=== PATIENT | male | born 1935 | race Caucasian/White ===

== ENCOUNTER 2022-04-17 13:21 | Outpatient (CLI) | payer OTHER, SELFPAY | END 2022-04-17 13:22 | disposition home or self-care (01) | LOC: WOUND 13:25 | PROVIDERS: Visit Provider Nurse Practitioner Family | DX: L89.152 Pressure ulcer of sacral region, stage 2 (principal); R26.89 Other abnormalities of gait and mobility | CPT/HCPCS: 99213 ==

== ENCOUNTER 2022-05-02 11:08 | Outpatient (CLI) | payer OTHER, SELFPAY | END 2022-05-02 11:09 | disposition home or self-care (01) | LOC: WOUND 11:08 | PROVIDERS: Visit Provider Physician Assistant Surgical | DX: L89.152 Pressure ulcer of sacral region, stage 2 (principal) | CPT/HCPCS: 99213 ==

== ENCOUNTER 2022-05-24 10:45 | Observation (INO) | payer OTHER, SELFPAY ==
[2022-05-24] VITALS (17 sets, daily range): BP systolic 134–176; BP diastolic 65–93; PULSE 87–108; RESP 12–20; TEMP 35.9–36.5; O2SAT 93–100; BMI 26.2; BMI 24.6
--- NOTE | 2022-05-24 11:10 | ED.ABDPAIN ---
HPI - Abdominal Pain General Time Seen by Provider: 11:10 Date Seen: 05/24/22 Chief Complaint: Abdominal Pain Stated Complaint: Stomach issues Time Seen by Provider: 05/24/22 11:00 Source: patient, RN notes reviewed and old records reviewed Mode of arrival: ambulatory Limitations: no limitations History of Present Illness HPI narrative: Patient is an 87-year-old male sent in from [facility] where he was evaluated by the nurse practitioner. He has been sick since May 16. The thought was that maybe he had gastroenteritis as it had been going around the facility. They did do an x-ray yesterday with the report showing nondiagnostic bowel gas pattern. Consider follow-up in the next few days if symptoms persist or worsen. They did note that there was a large gas bubble in the rectum. The colon was not constipated. They could see if you ticks in the descending and sigmoid colon. There were metal clips in the right upper quadrant presumably after cholecystectomy. There was attends device. No free air. They did note that there was a small left pleural effusion and some infiltrate in the left lower lobe. Note this was a dedicated abdomen one view. Previous cholecystectomy. Patient is a full code on his POLST. He is here with his son-in-law. With this illness, he has had nausea vomiting and diarrhea. Diarrhea sounds like it is subsided. He still did vomit yesterday but has not today. He admits he has not had good oral intake. No fevers at this time. He is requesting to drank but I have asked him to wait, will start IV fluids. He is having right-sided abdominal pain at this time. No reported respiratory symptoms. MD elicited complaint: abdominal pain Onset (ago): day(s) Location: RUQ and RLQ Severity: moderate Related Data Home Medications Medication Instructions Recorded Confirmed Lactobacillus acidophilus 1 cap PO .qod 05/24/22 05/24/22 allopurinol 100 mg tablet 200 mg PO DAILY 05/24/22 05/24/22 aspirin 81 mg capsule 81 mg PO DAILY 05/24/22 05/24/22 buprenorphine 2 mg-naloxone 0.5 mg 0.25 film sublingual Q24H 05/24/22 05/24/22 sublingual film cholecalciferol (vitamin D3) 25 25 mcg PO DAILY 05/24/22 05/24/22 mcg (1,000 unit) capsule (Vitamin D3) gabapentin 300 mg capsule 600 mg PO DAILY 05/24/22 05/24/22 isosorbide mononitrate 30 mg 30 mg PO DAILY 05/24/22 05/24/22 tablet,extended release 24 hr lidocaine 5 % topical patch 3 patch topical Q24H 05/24/22 05/24/22 lisinopril 20 1 tab PO DAILY 05/24/22 05/24/22 mg-hydrochlorothiazide 12.5 mg tablet metoprolol succinate 50 mg 75 mg PO DAILY 05/24/22 05/24/22 tablet,extended release 24 hr nystatin 100,000 unit/gram topical topical 05/24/22 ointment pregabalin 100 mg capsule 100 mg PO QPM 05/24/22 05/24/22 rivastigmine 9.5 mg/24 hour 1 patch topical DAILY 05/24/22 05/24/22 transdermal patch simvastatin 10 mg tablet 10 mg PO QPM 05/24/22 05/24/22 tamsulosin 0.4 mg capsule 0.4 mg PO DAILY 05/24/22 05/24/22 Allergies Allergy/AdvReac Type Severity Reaction Status Date / Time citalopram [From Celexa] Allergy Unknown Verified 05/24/22 11:11 clindamycin Allergy Unknown Verified 05/24/22 11:11 levofloxacin [From Levaquin] Allergy Unknown Verified 05/24/22 11:11 Penicillins Allergy Unknown Verified 05/24/22 11:11 Sulfa (Sulfonamide Allergy Unknown Verified 05/24/22 11:11 Antibiotics) diphenoxylate AdvReac Unknown Verified 05/24/22 11:11 duloxetine AdvReac Unknown Verified 05/24/22 11:11 Exam Const: Vital Signs, click to edit/add: Vital Signs - 24 hr 05/24/22 11:00 05/24/22 12:21 Temperature 96.6 F L Pulse Rate [Pulse Oximeter] 98 Respiratory Rate 14 Blood Pressure [Ri ght Upper Arm] 165/84 H Pulse Oximetry 95 93 Oxygen Delivery Me thod Room Air Documenting provider has reviewed patient's vital signs: yes Common normals: no apparent distress, average body habitus, oriented x3, no limitations and alert General appearance: cooperative, comfortable and frail appearing HENMT: Common normals: normocephalic, head/scalp atraumatic, hearing grossly normal bilaterally, external ears normal and external nose normal Head and scalp: normocephalic and atraumatic Nose: external nose normal External ear: external ears normal Mouth: moist mucous membranes abnormal (Dry mucosa without lesions) Eye: Common normals: PERRL, EOMs intact bilaterally, conjunctivae normal and no scleral icterus Conjunctiva: conjunctiva(e) normal Pupil: PERRL Neck & C-Spine: Common normals: full ROM, no lymphadenopathy and supple Chest: Common normals: inspection of chest normal and palpation of chest normal Other: Appears to have a well-healed sternotomy scar. Resp: Common normals: normal respiratory effort, no retractions, no use of accessory muscles and clear to auscultation bilaterally Auscultation: clear to auscultation bilaterally Cardio: Common normals: regular rate, regular rhythm, S1 normal heart sound and S2 normal heart sound Rate: regular rate Rhythm: regular rhythm Heart sounds: S1 normal, S2 normal and murmur ([place] best at apex) systolic GI: Common normals: Normal to inspection, nondistended, normoactive bowel sounds present, soft to palpation and no masses Palpation: soft Other: Has complete right-sided tenderness from right upper quadrant to right lower quadrant with guarding. Extremity: Common normals: no pedal edema Neuro: Common normals: oriented x3 Sensorium/orientation: alert Course Course Hospital Course: We have an 87-year-old male with right-sided abdominal pain and a history of being ill since the 16 of May. He also has possible pneumonia or lung findings on a dedicated abdominal x-ray. I do feel he needs abdominal imaging to rule out acute surgical abdomen as well as infectious etiology. This certainly could be appendicitis is it does not seem like he has had his appendix out. Gallbladder is gone. Need to visualize such things as the bowel, pancreas. I would also state that we need to look at his lung findings better. Thus will do chest abdomen pelvis. Will do a point of care creatinine to try to facilitate this workup quicker and make sure that he can tolerate IV contrast. Reevaluation(s) Reevaluation #1: Reviewed CT findings, nothing definitive for intra-abdominal pathology outside of thickened bladder wall. We will need to try to get a urinalysis. He has nearly completed his 1 L of fluid and does want to try eating and drinking. We will do an oral challenge with some fluids and crackers. He understands we need the urinalysis. Did review the elevated white count and the elevated C-reactive protein. Time: 13:58 Reevaluation #2: Reviewed with Arben his son-in-law that I had spoken with our surgeon Dr. Hernández. The concern is is that he is having localizing right-sided abdominal pain, elevated white count, elevated sed rate and elevated C-reactive protein. He has not had diarrhea for 2 days, last vomited yesterday but is overall weak as he has not been able to have adequate oral intake for fluids or solids. Our surgeon recommends admission for observation, serial exams. She will see him at some point today. I will talk to the hospitalist about admission. His neurostimulator site is not bothering him, has no other complaints. He is still having right-sided abdominal tenderness with some guarding features when I examine him. Time: 15:42 Consultations Consultation #1: Spoke with Dr. Hernández regarding this patient. We did review the CT, she agrees there is nothing definitive. She will see the patient, recommends hospitalization given his age, complaint of abdominal pain and his laboratory findings. Time: 15:30 Consultation #2: Reviewed with the hospitalist Dr. Haynes, she agrees for acceptance. Time: 15:48 Vital Signs Vital signs: Initial Vital Signs Temperature 96.6 F L 05/24/22 11:00 Temperature Source Temporal Artery Scan 05/24/22 11:00 Pulse Rate 98 05/24/22 11:00 Pulse Rhythm 05/24/22 11:00 Respiratory Rate 14 05/24/22 11:00 Blood Pressure 165/84 H 05/24/22 11:00 Blood Pressure Mean 111 05/24/22 11:00 Blood Pressure Position Supine 05/24/22 11:00 Pulse Oximetry 95 05/24/22 11:00 Oxygen Delivery Method 05/24/22 11:00 Vital Signs Temperature 96.6 F L 05/24/22 11:00 Pulse Rate 98 05/24/22 11:00 Respiratory Rate 14 05/24/22 11:00 Blood Pressure 165/84 H 05/24/22 11:00 Pulse Oximetry 95 05/24/22 11:00 Oxygen Delivery Method 05/24/22 11:00 Temperature 96.6 F L 05/24/22 11:00 Pulse Rate 98 05/24/22 11:00 Respiratory Rate 14 05/24/22 11:00 Blood Pressure 165/84 H 05/24/22 11:00 Pulse Oximetry 93 05/24/22 12:21 Oxygen Delivery Method 05/24/22 11:00 MDM - Abdominal Pain Differential Diagnosis Differential diagnosis: Likely abdominal pain, acute appendicitis, calculus of kidney, diverticulitis, gastroenteritis, pancreatitis and small bowel obstruction Medical Records Attestation: I reviewed the patient's medical records. Medical records narrative: The list of his diagnoses in his transfer paperwork reveals coronary artery disease, av malformation of digestive system vessel, enterocolitis due to C difficile, not recurrent, dyslipidemia, osteoarthritis of hip, iron deficiency anemia, chronic pain syndrome, knee pain, bilateral total knee replacements, lumbar degenerative disc disease, presumed prior CABG, dysphagia, hypertension, asthma history rotator cuff tear rupture of left shoulder, impingement syndrome of shoulder, adhesive capsulitis right shoulder lumbar spinal stenosis Alzheimer's disease, history of zoster bilateral inguinal hernias without obstruction, history of gout. Lab Data Attestation: I reviewed the patient's lab results. Labs: Lab Results 05/24/22 05/24/22 05/24/22 Range/Units 11:21 11:40 11:40 WBC 16.53 H (4.50-11.00) K/uL RBC 3.33 L (4.30-5.90) m/uL Hgb 11.4 L (13.5-17.5) gm/dL Hct 33.6 L (37.0-53.0) % MCV 101 H (80-100) fL MCH 34 (26-34) pg MCHC 34 (32-36) gm/dL RDW Coeff of [place] 14.4 (11.5-15.5) % Plt Count 205 (140-440) K/uL Neut % (Auto) 84.4 H (42.0-72.0) % Lymph % (Auto) 4.8 L (20-44) % [place] % (Auto) 10.5 (0.0-11.0) % Eos % (Auto) 0.0 (0.0-7.0) % Baso % (Auto) 0.1 (0.0-3.0) % Neut # (Auto) 14.00 H (1.7-7.0) K/uL Lymph # (Auto) 0.80 L (0.90-2.90) K/uL [place] # (Auto) 1.70 H (0.00-0.90) K/UL Eos # (Auto) 0.00 (0.00-0.50) K/uL Baso # (Auto) 0.00 (0.00-0.30) K/uL ESR 96 H (2-15) mm/hr Sodium (135-149) mmol/L Potassium (3.6-5.1) mmol/L Chloride (96-114) mmol/L Carbon Dioxide (20-32) mmol/L BUN (7-30) mg/dL Creatinine (0.5-1.5) mg/dL Estimated Creat Clear Estimated GFR ml/min Glucose (60-115) mg/dL Lactate (0.5-1.9) mmol/L Calcium (8.4-10.6) mg/dL Total Bilirubin (0.1-1.5) mg/dL AST (12-35) U/L ALT (4-50) U/L Alkaline Phosphatase (40-150) U/L C-Reactive Protein (0.5-1.0) mg/dL Total Protein (6.0-8.3) g/dL Albumin (3.3-5.0) g/dL Lipase (23-300) U/L Procalcitonin (<0.50) ng/mL Urine Color (Yellow) Urine Appearance (Clear) Urine pH (5.0-8.5) Ur Specific [place] (1.000-1.030) Urine Protein (Negative) Urine Glucose (UA) (Negative) Urine Ketones (Negative) Urine Blood (Negative) Urine Nitrite (Negative) Urine Bilirubin (Negative) Urine Urobilinogen (0.2-1.0) Ur Leukocyte Esterase (Negative) Urine RBC (0-2) Urine WBC (0-5) Ur Squamous Epith Cells (None-Few) Urine Bacteria (None) Fine Granular Casts (None) SARS-CoV-2 (PCR) Negative SARS-CoV-2 (Negative) POC Creatinine (0.6-1.3) mg/dl 05/24/22 05/24/22 05/24/22 Range/Units 11:40 11:40 11:40 WBC (4.50-11.00) K/uL RBC (4.30-5.90) m/uL Hgb (13.5-17.5) gm/dL Hct (37.0-53.0) % MCV (80-100) fL MCH (26-34) pg MCHC (32-36) gm/dL RDW Coeff of [place] (11.5-15.5) % Plt Count (140-440) K/uL Neut % (Auto) (42.0-72.0) % Lymph % (Auto) (20-44) % [place] % (Auto) (0.0-11.0) % Eos % (Auto) (0.0-7.0) % Baso % (Auto) (0.0-3.0) % Neut # (Auto) (1.7-7.0) K/uL Lymph # (Auto) (0.90-2.90) K/uL [place] # (Auto) (0.00-0.90) K/UL Eos # (Auto) (0.00-0.50) K/uL Baso # (Auto) (0.00-0.30) K/uL ESR (2-15) mm/hr Sodium 139 (135-149) mmol/L Potassium 3.8 (3.6-5.1) mmol/L Chloride 109 (96-114) mmol/L Carbon Dioxide 20 (20-32) mmol/L BUN 35 H (7-30) mg/dL Creatinine 1.1 (0.5-1.5) mg/dL Estimated Creat Clear 44.23 Estimated GFR 65 ml/min Glucose 165 H (60-115) mg/dL Lactate 1.7 (0.5-1.9) mmol/L Calcium 9.4 (8.4-10.6) mg/dL Total Bilirubin 1.9 H (0.1-1.5) mg/dL AST 25 (12-35) U/L ALT 24 (4-50) U/L Alkaline Phosphatase 96 (40-150) U/L C-Reactive Protein 15.7 H (0.5-1.0) mg/dL Total Protein 6.8 (6.0-8.3) g/dL Albumin 3.8 (3.3-5.0) g/dL Lipase 54 (23-300) U/L Procalcitonin 0.27 (<0.50) ng/mL Urine Color (Yellow) Urine Appearance (Clear) Urine pH (5.0-8.5) Ur Specific [place] (1.000-1.030) Urine Protein (Negative) Urine Glucose (UA) (Negative) Urine Ketones (Negative) Urine Blood (Negative) Urine Nitrite (Negative) Urine Bilirubin (Negative) Urine Urobilinogen (0.2-1.0) Ur Leukocyte Esterase (Negative) Urine RBC (0-2) Urine WBC (0-5) Ur Squamous Epith Cells (None-Few) Urine Bacteria (None) Fine Granular Casts (None) SARS-CoV-2 (PCR) (Negative) POC Creatinine 1.2 (0.6-1.3) mg/dl 05/24/22 Range/Units 14:29 WBC (4.50-11.00) K/uL RBC (4.30-5.90) m/uL Hgb (13.5-17.5) gm/dL Hct (37.0-53.0) % MCV (80-100) fL MCH (26-34) pg MCHC (32-36) gm/dL RDW Coeff of [place] (11.5-15.5) % Plt Count (140-440) K/uL Neut % (Auto) (42.0-72.0) % Lymph % (Auto) (20-44) % [place] % (Auto) (0.0-11.0) % Eos % (Auto) (0.0-7.0) % Baso % (Auto) (0.0-3.0) % Neut # (Auto) (1.7-7.0) K/uL Lymph # (Auto) (0.90-2.90) K/uL [place] # (Auto) (0.00-0.90) K/UL Eos # (Auto) (0.00-0.50) K/uL Baso # (Auto) (0.00-0.30) K/uL ESR (2-15) mm/hr Sodium (135-149) mmol/L Potassium (3.6-5.1) mmol/L Chloride (96-114) mmol/L Carbon Dioxide (20-32) mmol/L BUN (7-30) mg/dL Creatinine (0.5-1.5) mg/dL Estimated Creat Clear Estimated GFR ml/min Glucose (60-115) mg/dL Lactate (0.5-1.9) mmol/L Calcium (8.4-10.6) mg/dL Total Bilirubin (0.1-1.5) mg/dL AST (12-35) U/L ALT (4-50) U/L Alkaline Phosphatase (40-150) U/L C-Reactive Protein (0.5-1.0) mg/dL Total Protein (6.0-8.3) g/dL Albumin (3.3-5.0) g/dL Lipase (23-300) U/L Procalcitonin (<0.50) ng/mL Urine Color Yellow (Yellow) Urine Appearance Slightly Cloudy A (Clear) Urine pH 5.0 (5.0-8.5) Ur Specific [place] <= 1.005 (1.000-1.030) Urine Protein 1+ A (Negative) Urine Glucose (UA) Negative (Negative) Urine Ketones Negative (Negative) Urine Blood Trace-lysed A (Negative) Urine Nitrite Negative (Negative) Urine Bilirubin Negative (Negative) Urine Urobilinogen 1.0 (0.2-1.0) Ur Leukocyte Esterase Negative (Negative) Urine RBC 0-2 (0-2) Urine WBC 2-5 (0-5) Ur Squamous Epith Cells Few (None-Few) Urine Bacteria None (None) Fine Granular Casts Few A (None) SARS-CoV-2 (PCR) (Negative) POC Creatinine (0.6-1.3) mg/dl Imaging Data CT Chest/Ab/Pelvis: Attestation: I have reviewed the pertinent imaging results. Radiologist's impression: Patient: [facility] Facility:?[facility] Patient ID:?[id number] Site Patient ID:?[id number]. Site :?[id number] Study:?CT Chest/Abd/Pelvis W/ 82CC [id number] 12:05:09 PM Ordering Physician:Joshua Lyn Final Report: INDICATION: Hypogastric pain with weakness TECHNIQUE: CT chest, abdomen and pelvis acquired with 82 milliliters of Isovue 370 IV contrast. COMPARISON: January 01, 2020 FINDINGS: CHEST: Cardiovascular structures: Heart size is normal. Thoracic aorta and main pulmonary artery are normal in caliber. Aortic arch and coronary artery calcifications. No central PE. Mediastinum and danisha: No mass or adenopathy. Lungs and pleura: Pulmonary emphysema. Trace left pleural effusion with compressive atelectasis and pleural calcifications. Chest wall and axilla: No mass or adenopathy. Bones: Left shoulder arthroplasty causing streak artifact. Sternotomy wires. No suspicious bone lesions. Degenerative changes. ABDOMEN AND PELVIS: Liver: Unremarkable. Gallbladder and bile ducts: Cholecystectomy. Pancreas: Fatty atrophy. Spleen: Unremarkable. Adrenal glands: Unremarkable. Kidneys: Bilateral renal cysts. Additional hypodensities too small to characterize. No hydronephrosis. GI tract: Colonic diverticulosis. No bowel obstruction. Vascular structures: Moderate aortoiliac arterial calcifications. Lymph nodes: Unremarkable. Miscellaneous: Left lumbar generator pack with spinal stimulator leads. No free air or significant free fluid. Postsurgical changes along the ventral pelvic wall. Pelvic Organs: Prostatomegaly. The mildly distended bladder with circumferential wall thickening, greatest along the anterior aspect. Bones: No suspicious bone lesions. Degenerative changes. IMPRESSION: Pulmonary emphysema. Trace left pleural effusion. Colonic diverticulosis. Circumferential bladder wall thickening. Recommend correlation with urinalysis. No acute intrathoracic or intra-abdominal/pelvic abnormality. Please note that all CT scans at this facility use dose modulation, iterative reconstruction, and/or weight-based dosing when appropriate to reduce radiation dose to as low as reasonably achievable. Dictated by Ollie Reyna MD @ 05/24/2022 1:28:10 PM (Electronic Signature) Critical Care Time Critical Care Time Critical Care Time: No Discharge Plan Discharge Clinical Impression: Abdominal pain Patient Disposition: Admitted As Inpatient Condition: Unchanged
--- NOTE | 2022-05-24 11:19 | CRLHL7_ITS ---
For Patients: As a result of the Century Cures Act, medical imaging exams and procedure reports are released immediately into your electronic medical record. You may view this report before your referring provider. If you have questions, please contact your health care provider. INDICATION: Hypogastric pain with weakness TECHNIQUE: CT chest, abdomen and pelvis acquired with 82 milliliters of Isovue 370 IV contrast. COMPARISON: January 01, 2020 FINDINGS: CHEST: Cardiovascular structures: Heart size is normal. Thoracic aorta and main pulmonary artery are normal in caliber. Aortic arch and coronary artery calcifications. No central PE. Mediastinum and danisha: No mass or adenopathy. Lungs and pleura: Pulmonary emphysema. Trace left pleural effusion with compressive atelectasis and pleural calcifications. Chest wall and axilla: No mass or adenopathy. Bones: Left shoulder arthroplasty causing streak artifact. Sternotomy wires. No suspicious bone lesions. Degenerative changes. ABDOMEN AND PELVIS: Liver: Unremarkable. Gallbladder and bile ducts: Cholecystectomy. Pancreas: Fatty atrophy. Spleen: Unremarkable. Adrenal glands: Unremarkable. Kidneys: Bilateral renal cysts. Additional hypodensities too small to characterize. No hydronephrosis. GI tract: Colonic diverticulosis. No bowel obstruction. Vascular structures: Moderate aortoiliac arterial calcifications. Lymph nodes: Unremarkable. Miscellaneous: Left lumbar generator pack with spinal stimulator leads. No free air or significant free fluid. Postsurgical changes along the ventral pelvic wall. Pelvic Organs: Prostatomegaly. The mildly distended bladder with circumferential wall thickening, greatest along the anterior aspect. Bones: No suspicious bone lesions. Degenerative changes. IMPRESSION: Pulmonary emphysema. Trace left pleural effusion. Colonic diverticulosis. Circumferential bladder wall thickening. Recommend correlation with urinalysis. No acute intrathoracic or intra-abdominal/pelvic abnormality. Please note that all CT scans at this facility use dose modulation, iterative reconstruction, and/or weight-based dosing when appropriate to reduce radiation dose to as low as reasonably achievable. Dictated by Ollie Reyna MD @ 05/24/2022 1:28:10 PM (Electronically Signed)
[2022-05-24 11:49] LABS: Creatinine, Point-of-Care* 1.2 mg/dl (0.6-1.3)
[2022-05-24] MEDS: 0.9 % SODIUM CHLORIDE 1000 ml 1,000 ML 500 ML IV (12:08)
[2022-05-24 12:40] LABS: Lactate* 1.7 mmol/L (0.5-1.9)
[2022-05-24 12:41] LABS: Basophils Percent Auto 0.1 % (0.0-3.0); Hematocrit 33.6 % (37.0-53.0); Hemoglobin* 11.4 gm/dL (13.5-17.5); Immature Granulocytes Pct Auto 0.2 %; Lymphocytes Percent Auto 4.8 % (20-44); Mean Corpuscular HGB Conc 34 gm/dL (32-36); Mean Corpuscular Hemoglobin 34 pg (26-34); Mean Corpuscular Volume 101 fL (80-100); Monocytes Percent Auto 10.5 % (0.0-11.0); Neutrophils Percent Auto 84.4 % (42.0-72.0); Platelet Count* 205 K/uL (140-440); RDW Coefficient of Variation % 14.4 % (11.5-15.5); Red Blood Count 3.33 m/uL (4.30-5.90); White Blood Count* 16.53 K/uL (4.50-11.00)
[2022-05-24 12:42] LABS: SARS PCR* Negative SARS-CoV-2 (Negative)
[2022-05-24 12:49] LABS: Slide Review Reflex No
[2022-05-24 13:04] LABS: Albumin* 3.8 g/dL (3.3-5.0); Chloride* 109 mmol/L (96-114); Sodium* 139 mmol/L (135-149)
[2022-05-24 13:05] LABS: Potassium* 3.8 mmol/L (3.6-5.1)
[2022-05-24 13:06] LABS: Creatinine* 1.1 mg/dL (0.5-1.5); Est. Creatinine Clearance* 44.23; Estimated Glomerular Filt Rate 65 ml/min
[2022-05-24 13:07] LABS: Alanine Aminotransferase* 24 U/L (4-50); Alkaline Phosphatase* 96 U/L (40-150); Aspartate Amino Transferase* 25 U/L (12-35); Bilirubin Total* 1.9 mg/dL (0.1-1.5); Blood Urea Nitrogen* 35 mg/dL (7-30); Carbon Dioxide* 20 mmol/L (20-32); Glucose* 165 mg/dL (60-115); Lipase* 54 U/L (23-300); Total Protein* 6.8 g/dL (6.0-8.3)
[2022-05-24 13:08] LABS: Calcium* 9.4 mg/dL (8.4-10.6)
[2022-05-24 13:24] LABS: Procalcitonin* 0.27 ng/mL (<0.50)
[2022-05-24 13:28] LABS: C Reactive Protein* 15.7 mg/dL (0.5-1.0)
[2022-05-24 13:57] LABS: Erythrocyte SedimentationRate* 96 mm/hr (2-15)
[2022-05-24 14:40] LABS: Appearance Urine Slightly Cloudy (Clear); Bilirubin Urine Negative (Negative); Blood Urine Trace-lysed (Negative); Color Urine Yellow (Yellow); Glucose Urine Negative (Negative); Ketones Urine Negative (Negative); Leukocyte Esterase Urine Negative (Negative); Nitrite Urine Negative (Negative); Protein Urine 1+ (Negative); Specific Gravity Urine <= 1.005 (1.000-1.030)
[2022-05-24 15:05] LABS: RBC Urine 0-2 (0-2); Squamous Epithelial Cell Urine Few (None-Few)
[2022-05-24 15:06] LABS: Fine Granular Casts Urine Few
--- NOTE | 2022-05-24 15:41 | P.GSCN_ITS ---
History of Present Illness Consult details Date Seen: 05/24/22 Consult date: 05/24/22 Narrative: The patient is an 87-year-old male who presents to the emergency department today with recent history of GI illness and persistent right-sided abdominal pain. He lives in a senior care community with his and there has been an outbreak of gastroenteritis. Since May 16 he has had nausea vomiting and diarrhea as well as right-sided abdominal pain. He states that movement makes the right-sided pain worse. overall during his illness course the pain has gotten slightly better. He has never had pain like this previously. The diarrhea has stopped in the last 2 days, however he was given something at the senior living for diarrhea. He states his last bowel movement was 2 days ago and was whitish. He has not had much of an appetite because of the nausea. 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 He does not smoke. He drinks approximately 1 alcoholic drink per month. Smoking Status: Former smoker How often do you have a drink containing alcohol: monthly or less AUDIT-C Alcohol total score: 1 Non-prescribed substance use: denies use service: Yes ([employer]) Meds Home Medications and Allergies Home Medications Medication Instructions Recorded Confirmed Type Lactobacillus acidophilus 1 cap PO .qod 05/24/22 05/24/22 History allopurinol 100 mg tablet 200 mg PO DAILY 05/24/22 05/24/22 History aspirin 81 mg capsule 81 mg PO DAILY 05/24/22 05/24/22 History buprenorphine 2 mg-naloxone 0.5 mg 0.25 film sublingual Q24H 05/24/22 05/24/22 History sublingual film cholecalciferol (vitamin D3) 25 25 mcg PO DAILY 05/24/22 05/24/22 History mcg (1,000 unit) capsule (Vitamin D3) gabapentin 300 mg capsule 600 mg PO DAILY 05/24/22 05/24/22 History isosorbide mononitrate 30 mg 30 mg PO DAILY 05/24/22 05/24/22 History tablet,extended release 24 hr lidocaine 5 % topical patch 3 patch topical Q24H 05/24/22 05/24/22 History lisinopril 20 1 tab PO DAILY 05/24/22 05/24/22 History mg-hydrochlorothiazide 12.5 mg tablet metoprolol succinate 50 mg 75 mg PO DAILY 05/24/22 05/24/22 History tablet,extended release 24 hr nystatin 100,000 unit/gram topical topical 05/24/22 History ointment pregabalin 100 mg capsule 100 mg PO QPM 05/24/22 05/24/22 History rivastigmine 9.5 mg/24 hour 1 patch topical DAILY 05/24/22 05/24/22 History transdermal patch simvastatin 10 mg tablet 10 mg PO QPM 05/24/22 05/24/22 History tamsulosin 0.4 mg capsule 0.4 mg PO DAILY 05/24/22 05/24/22 History Allergies Allergy/AdvReac Type Severity Reaction Status Date / Time citalopram [From Celexa] Allergy Unknown Verified 05/24/22 11:11 clindamycin Allergy Unknown Verified 05/24/22 11:11 levofloxacin [From Levaquin] Allergy Unknown Verified 05/24/22 11:11 Penicillins Allergy Unknown Verified 05/24/22 11:11 Sulfa (Sulfonamide Allergy Unknown Verified 05/24/22 11:11 Antibiotics) diphenoxylate AdvReac Unknown Verified 05/24/22 11:11 duloxetine AdvReac Unknown Verified 05/24/22 11:11 Exam Narrative: Exam Narrative: General appearance: Alert, cooperative, and in no distress Eyes: PERRLA, eye lids clear, and sclera white HENT Head: Normocephalic Ears: External ears normal Pulmonary: Breathing nonlabored on room air Cardiovascular Heart: Regular rate Gastrointestinal Abdominal: no large scars. Tender on the right. No guarding. Tenderness is worse in the right upper quadrant. No rebound. Musculoskeletal: Extremities: Upper: Both upper extremities have normal joint range of motion and intact strength. Lower: Both lower extremities have normal joint range of motion and intact strength. Skin: Normal skin color, texture, and turgor. No rashes or lesions. Neurologic: No focal deficits Psychiatric: Alert, oriented, cooperative, normal affect. Const: Vital Signs, click to edit/add: Vital Signs - 24 hr 05/24/22 11:00 05/24/22 12:21 Temperature 96.6 F L Pulse Rate [Pulse Oximeter] 98 Respiratory Rate 14 Blood Pressure [Ri ght Upper Arm] 165/84 H Pulse Oximetry 95 93 Oxygen Delivery Me thod Room Air Results Labs Labs: Abnormal lab results 05/24/22 05/24/22 05/24/22 Range/Units 11:40 11:40 11:40 WBC 16.53 H (4.50-11.00) K/uL RBC 3.33 L (4.30-5.90) m/uL Hgb 11.4 L (13.5-17.5) gm/dL Hct 33.6 L (37.0-53.0) % MCV 101 H (80-100) fL Neut % (Auto) 84.4 H (42.0-72.0) % Lymph % (Auto) 4.8 L (20-44) % Neut # (Auto) 14.00 H (1.7-7.0) K/uL Lymph # (Auto) 0.80 L (0.90-2.90) K/uL [place] # (Auto) 1.70 H (0.00-0.90) K/UL ESR 96 H (2-15) mm/hr BUN 35 H (7-30) mg/dL Glucose 165 H (60-115) mg/dL Total Bilirubin 1.9 H (0.1-1.5) mg/dL C-Reactive Protein 15.7 H (0.5-1.0) mg/dL Urine Appearance (Clear) Urine Protein (Negative) Urine Blood (Negative) Fine Granular Casts (None) 05/24/22 Range/Units 14:29 WBC (4.50-11.00) K/uL RBC (4.30-5.90) m/uL Hgb (13.5-17.5) gm/dL Hct (37.0-53.0) % MCV (80-100) fL Neut % (Auto) (42.0-72.0) % Lymph % (Auto) (20-44) % Neut # (Auto) (1.7-7.0) K/uL Lymph # (Auto) (0.90-2.90) K/uL [place] # (Auto) (0.00-0.90) K/UL ESR (2-15) mm/hr BUN (7-30) mg/dL Glucose (60-115) mg/dL Total Bilirubin (0.1-1.5) mg/dL C-Reactive Protein (0.5-1.0) mg/dL Urine Appearance Slightly Cloudy A (Clear) Urine Protein 1+ A (Negative) Urine Blood Trace-lysed A (Negative) Fine Granular Casts Few A (None) Diabetes panel 05/24/22 Range/Units 11:40 Sodium 139 (135-149) mmol/L Potassium 3.8 (3.6-5.1) mmol/L Chloride 109 (96-114) mmol/L Carbon Dioxide 20 (20-32) mmol/L BUN 35 H (7-30) mg/dL Creatinine 1.1 (0.5-1.5) mg/dL Glucose 165 H (60-115) mg/dL Calcium 9.4 (8.4-10.6) mg/dL AST 25 (12-35) U/L ALT 24 (4-50) U/L Alkaline Phosphatase 96 (40-150) U/L Total Protein 6.8 (6.0-8.3) g/dL Albumin 3.8 (3.3-5.0) g/dL Calcium panel 05/24/22 Range/Units 11:40 Calcium 9.4 (8.4-10.6) mg/dL Albumin 3.8 (3.3-5.0) g/dL Pituitary panel 05/24/22 Range/Units 11:40 Sodium 139 (135-149) mmol/L Potassium 3.8 (3.6-5.1) mmol/L Chloride 109 (96-114) mmol/L Carbon Dioxide 20 (20-32) mmol/L BUN 35 H (7-30) mg/dL Creatinine 1.1 (0.5-1.5) mg/dL Glucose 165 H (60-115) mg/dL Calcium 9.4 (8.4-10.6) mg/dL Adrenal panel 05/24/22 Range/Units 11:40 Sodium 139 (135-149) mmol/L Potassium 3.8 (3.6-5.1) mmol/L Chloride 109 (96-114) mmol/L Carbon Dioxide 20 (20-32) mmol/L BUN 35 H (7-30) mg/dL Creatinine 1.1 (0.5-1.5) mg/dL Glucose 165 H (60-115) mg/dL Calcium 9.4 (8.4-10.6) mg/dL Total Bilirubin 1.9 H (0.1-1.5) mg/dL AST 25 (12-35) U/L ALT 24 (4-50) U/L Alkaline Phosphatase 96 (40-150) U/L Total Protein 6.8 (6.0-8.3) g/dL Albumin 3.8 (3.3-5.0) g/dL All other labs normal. Imaging Additional studies: Diagnostic Imaging Report Patient: Ramiro Joseph MR#: [id number] : 1935 Acct:[id number] Loc: ED Service Date: 05/24/[address]: Ordering Physician: Eboni Burrows M.D. Date of Service: 05/24/22 Procedure(s): CT chest abdomen pelv w con Accession Number(s): [id number] cc: Provider,Not a Local ; Eboni Burrows M.D.~ For Patients:? As a result of the Cures Act, medical imaging exams and procedure reports are released immediately into your electronic medical record.? You may view this report before your referring provider.? If you have questions, please contact your health care provider. INDICATION: Hypogastric pain with weakness TECHNIQUE: CT chest, abdomen and pelvis acquired with 82 milliliters of Isovue 370 IV contrast. COMPARISON: January 01, 2020 FINDINGS: CHEST: Cardiovascular structures: Heart size is normal. Thoracic aorta and main pulmonary artery are normal in caliber.? Aortic arch and coronary artery calcifications. No central PE. Mediastinum and danisha: No mass or adenopathy.? Lungs and pleura: Pulmonary emphysema. Trace left pleural effusion with compressive atelectasis and pleural calcifications. Chest wall and axilla: No mass or adenopathy.? Bones: Left shoulder arthroplasty causing streak artifact. Sternotomy wires. No suspicious bone lesions. Degenerative changes. ABDOMEN AND PELVIS: Liver: Unremarkable.? Gallbladder and bile ducts: Cholecystectomy. Pancreas: Fatty atrophy. Spleen: Unremarkable.? Adrenal glands: Unremarkable.? Kidneys: Bilateral renal cysts. Additional hypodensities too small to characterize. No hydronephrosis. GI tract: Colonic diverticulosis. No bowel obstruction. Vascular structures: Moderate aortoiliac arterial calcifications. Lymph nodes: Unremarkable.? Miscellaneous: Left lumbar generator pack with spinal stimulator leads. No free air or significant free fluid. Postsurgical changes along the ventral pelvic wall. Pelvic Organs: Prostatomegaly. The mildly distended bladder with circumferential wall thickening, greatest along the anterior aspect. Bones: No suspicious bone lesions. Degenerative changes. IMPRESSION: Pulmonary emphysema. Trace left pleural effusion. Colonic diverticulosis. Circumferential bladder wall thickening. Recommend correlation with urinalysis. No acute intrathoracic or intra-abdominal/pelvic abnormality. Please note that all CT scans at this facility use dose modulation, iterative reconstruction, and/or weight-based dosing when appropriate to reduce radiation dose to as low as reasonably achievable. Dictated by Ollie Reyna MD @ 05/24/2022 1:28:10 PM (Electronically Signed) Assessment and Plan Assessment and plan (1) Abdominal pain: Status: Acute Plan The patient is an 87-year-old male with right-sided abdominal pain and recent gastrointestinal illness. He has a remarkable white blood cell count and sed rate and CRP, however after review images as well as with the radiologist, there is no surgical target. His bilirubin is slightly elevated at 1.8. I do recommend checking a direct bilirubin. If this is elevated consider MRCP. If indirect is elevated this is likely secondary to acute illness. If patient continues to have loose stools recommend checking C diff. Otherwise recommend supportive care. If status changes will repeat exam and reassess for possible surgical intervention.
--- NOTE | 2022-05-24 16:08 | ED.NURSE ---
Report given to PRINCESS Farris. Pt will go to Rm [id number].
--- NOTE | 2022-05-24 16:59 | ED.NURSE ---
Xuan, daughter, updated that Pt was admitted.
--- NOTE | 2022-05-24 17:06 | PM.IMHP1 ---
Hospitalist- H&P: HPI History of Present Illness Date Seen: 05/24/22 Chief complaint: Stomach issues Narrative: Ramiro Joseph is a 87 year old male who presented to the ER from his Assisted living facility ([facility]) for right-sided abdominal pain. Patient has been intermittently ill since 05/16; during the past week he has had intermittent nausea, vomiting, and diarrhea. There was apparently a GI illness going around his facility at the time. He has not had vomiting and diarrhea for at least 2 days at this point, but right-sided abdominal pain persists. He has known post herpetic neuralgia on the right side; current pain is different. It has not worsened recently, Ramiro actually notes that his pain is improved in the past 24 hours. He was seen by a provider yesterday; per chart review, no acute findings noted on x-ray. ER course and findings: - white count 16, elevated ESR and CRP - afebrile, hypertensive - normal lipase, procalcitonin, elevated direct bilirubin - no acute findings on CT of chest abdomen pelvis - Dr. Hernández of general surgery consulted on patient - antibiotics deferred Given patient's symptoms and lab abnormalities, he is admitted to the hospital for monitoring. Past medical history updated below, gleaned from interview and chart review. Ramiro has a diagnosis of Alzheimer's disease, but is able to provide me quite a bit of his history. In addition to chronic pain of R side from postherpetic neuralgia, he also has chronic R shoulder pain and a callous on his R heel that is painful. Review of Systems Status of ROS: Reports: 10 or more systems reviewed and unremarkable except as noted in History and below [facility] Medical History (Updated 05/24/22 @ 18:46 by Gail Haynes MD) Alzheimer disease BPH w urinary obs/LUTS CAD (coronary artery disease) Chronic pain CVA (cerebral vascular accident) Essential hypertension Gout Hyperlipidemia Post herpetic neuralgia Surgical History (Updated 05/24/22 @ 16:38 by Ngozi Hernández MD) S/P CABG x 4 S/P laparoscopic cholecystectomy S/P laparoscopic hernia repair S/P placement of nerve stimulator Social History (Updated 05/24/22 @ 18:03 by Gail Haynes MD) Narrative: 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 He does not smoke, drinks approximately 1 alcoholic drink per month. would be medical decision maker if needed. Full Code Status. Highest level of school completed/degree received: Associate degree: occupational, technical, vocational program Smoking Status: Former smoker Do you use any of these nicotine containing products: None Second hand tobacco smoke exposure: No How often do you have a drink containing alcohol: monthly or less AUDIT-C Alcohol total score: 1 Non-prescribed substance use: denies use Caffeine: No service: Yes ([employer]) Meds Home Medications and Allergies Home Medications Medication Instructions Recorded Confirmed Type CLOTR/A+D 05/24/22 History Lactobacillus acidophilus 0.5 mg 0.5 mg PO Q48H 05/24/22 05/24/22 History (100 million cell) tablet acetaminophen 500 mg tablet 1,000 mg PO TID 05/24/22 05/24/22 History (Acetaminophen Pain Relief) albuterol sulfate 90 mcg/actuation 2 puff inhalation Q4H PRN 05/24/22 05/24/22 History aerosol inhaler allopurinol 100 mg tablet 200 mg PO DAILY 05/24/22 05/24/22 History aspirin 81 mg tablet,delayed 81 mg PO DAILY 05/24/22 05/24/22 History release (Adult Aspirin Regimen) bismuth subsalicylate 262 mg/15 mL 262 mg PO Q4H PRN 05/24/22 05/24/22 History oral suspension buprenorphine 2 mg-naloxone 0.5 mg 0.25 film sublingual Q24H 05/24/22 05/24/22 History sublingual film cholecalciferol (vitamin D3) 25 25 mcg PO DAILY 05/24/22 05/24/22 History mcg (1,000 unit) capsule (Vitamin D3) coenzyme Q10 100 mg capsule (Co 100 mg PO DAILY 05/24/22 05/24/22 History Q-10) gabapentin 300 mg capsule 600 mg PO DAILY 05/24/22 05/24/22 History isosorbide mononitrate 30 mg 30 mg PO DAILY 05/24/22 05/24/22 History tablet,extended release 24 hr ketoconazole 2 % topical cream 1 applic topical BID PRN 05/24/22 05/24/22 History lidocaine 5 % topical patch 3 patch topical DAILY 05/24/22 05/24/22 History lisinopril 20 1 tab PO DAILY 05/24/22 05/24/22 History mg-hydrochlorothiazide 12.5 mg tablet metoclopramide HCl 5 mg/5 mL oral 5 - 10 mg PO TID PRN 05/24/22 05/24/22 History solution metoprolol succinate 50 mg 75 mg PO DAILY 05/24/22 05/24/22 History tablet,extended release 24 hr multivitamin (Daily Multi-Vitamin 1 tab PO DAILY 05/24/22 05/24/22 History tablet) nitroglycerin 0.4 mg sublingual 0.4 mg sublingual Q5M PRN 05/24/22 05/24/22 History tablet omega 5-mlx-uwz-fish oil 1,000 mg 1 cap PO DAILY 05/24/22 05/24/22 History (120 mg-180 mg) capsule (Fish Oil) pantoprazole 40 mg tablet,delayed 40 mg PO DAILY PRN 05/24/22 05/24/22 History release polyethylene glycol 3350 17 17 g PO DAILY 05/24/22 05/24/22 History gram/dose oral powder (ClearLax) pregabalin 100 mg capsule 100 mg PO HS 05/24/22 05/24/22 History rivastigmine 9.5 mg/24 hour 1 patch topical DAILY 05/24/22 05/24/22 History transdermal patch sennosides 8.6 mg-docusate sodium 1 tab-cap PO DAILY 05/24/22 05/24/22 History 50 mg tablet (Senexon-S) simvastatin 10 mg tablet 10 mg PO HS 05/24/22 05/24/22 History tamsulosin 0.4 mg capsule 0.4 mg PO DAILY 05/24/22 05/24/22 History Home Medication Comments: - 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 When I specifically asked him about previous narcotic use, he denies any history of previous chronic narcotic use Allergies Allergy/AdvReac Type Severity Reaction Status Date / Time citalopram [From Celexa] Allergy Unknown Verified 05/24/22 11:11 clindamycin Allergy Unknown Verified 05/24/22 11:11 levofloxacin [From Levaquin] Allergy Unknown Verified 05/24/22 11:11 Penicillins Allergy Unknown Verified 05/24/22 11:11 Sulfa (Sulfonamide Allergy Unknown Verified 05/24/22 11:11 Antibiotics) diphenoxylate AdvReac Unknown Verified 05/24/22 11:11 duloxetine AdvReac Unknown Verified 05/24/22 11:11 Exam Narrative: Exam Narrative: GEN: Alert and laying comfortably in bed HEENT: Normal external ears, EOMIs bilaterally, no scleral icterus CV: RRR R: LCTA bilaterally without concerning wheezing, air movement adequate Ext: wwp, no concerning edema Skin: + raised callous R heel without evidence of surrounding infection Neuro: No focal deficits Psych: Answering questions appropriately Const: Vital Signs, click to edit/add: Vital Signs - 24 hr 05/24/22 11:00 05/24/22 12:21 05/24/22 16:30 Temperature 96.6 F L 97.7 F Pulse Rate Pulse Rate [Left B rachial] 94 Pulse Rate [Pulse Oximeter] 98 Respiratory Rate 14 20 Blood Pressure Blood Pressure [Le ft Arm] 164/79 H Blood Pressure [Ri ght Upper Arm] 165/84 H Pulse Oximetry 95 93 [facility] Air 05/24/22 12:45 05/24/22 13:02 05/24/22 13:31 Temperature Pulse Rate 95 98 91 Pulse Rate [Left B rachial] Pulse Rate [Pulse Oximeter] Respiratory Rate Blood Pressure 172/93 H 163/86 H Blood Pressure [Le ft Arm] Blood Pressure [Ri ght Upper Arm] Pulse Oximetry 94 96 96 Oxygen Delivery Me od 05/24/22 14:01 05/24/22 15:00 05/24/22 15:03 Temperature Pulse Rate 87 98 96 Pulse Rate [Left B rachial] Pulse Rate [Pulse Oximeter] Respiratory Rate 16 Blood Pressure 176/92 H 176/92 H Blood Pressure [Le ft Arm] Blood Pressure [Ri ght Upper Arm] Pulse Oximetry 100 97 97 Oxygen Delivery Me od 05/24/22 15:31 05/24/22 16:02 Temperature Pulse Rate 89 Pulse Rate [Left B rachial] Pulse Rate [Pulse Oximeter] Respiratory Rate 14 Blood Pressure 155/80 H 168/91 H Blood Pressure [Le ft Arm] Blood Pressure [Ri ght Upper Arm] Pulse Oximetry 96 [facility] - [facility]: Result Labs Labs: Short CBC 05/24/22 Range/Units 11:40 WBC 16.53 H (4.50-11.00) K/uL Hgb 11.4 L (13.5-17.5) gm/dL Hct 33.6 L (37.0-53.0) % Plt Count 205 (140-440) K/uL BMP 05/24/22 11:40 Sodium 139 Potassium 3.8 Chloride 109 Carbon Dioxide 20 BUN 35 H Creatinine 1.1 Glucose 165 H Calcium 9.4 Liver Function 05/24/22 Range/Units 11:40 Total Bilirubin 1.9 H (0.1-1.5) mg/dL AST 25 (12-35) U/L ALT 24 (4-50) U/L Alkaline Phosphatase 96 (40-150) U/L Albumin 3.8 (3.3-5.0) g/dL Urine 05/24/22 Range/Units 14:29 Urine Color Yellow (Yellow) Urine Appearance Slightly Cloudy A (Clear) Urine pH 5.0 (5.0-8.5) Ur Specific [place] <= 1.005 (1.000-1.030) Urine Protein 1+ A (Negative) Urine Glucose (UA) Negative (Negative) Assessment and Plan Assessment and plan (1) Abdominal pain: Problem comment: - no acute process identified on imaging, may be related to recent GI illness, atypical biliary colic - VS reassuring, follow leukocytosis and bilirubin - will test for C-diff if diarrhea recurs, continue to follow clinically Status: Acute (2) Chronic pain: Problem comment: - on Lyrica, gabapentin, Suboxone, lidocaine patches Status: Acute (3) Elevated bilirubin: Problem comment: - will follow overnight; if continues to have pain and direct hyperbilirubinemia persists, MRCP per General Surgery recommendations Status: Acute Plan - per above - comorbidities as noted above are stable, will continue home medications - ASA, SCDs, ambulation for ppx - home with when medically stable
[2022-05-24 17:38] LABS: Bilirubin Direct* 0.7 mg/dL (0.0-0.5)
--- NOTE | 2022-05-24 19:54 | PC.NURSE ---
shift note: pt admit to rm @ 1600 via stretcher. pt states his rt shoulder painful and shows limited ROM in the arm. pt has lido patches to rt lateral and posterior lower back. nerve stimulator present on rt side. Pt has dry skin bilat l/e with stasis changes to bilat shins. Pt has small callose to posterior rt heel. Pt has acive BS x4. pt denies n/v. Pt states last BM 2 days ago. Pt states RUQ pain on palpation 12/12. Pt tolerating water and scrambled eggs for supper. IV patent to Lt FA. Pt's daughter updated via phone. Assisted pt in calling his spouse.
[2022-05-24] MEDS: SIMVASTATIN 10 MG TABLET PO (20:58)
[2022-05-24] MEDS: PREGABALIN 100 MG CAPSULE PO (20:58)
[2022-05-24] MEDS: ACETAMINOPHEN 500 MG TABLET 1000 MG PO (20:58)
[2022-05-24] MEDS: SODIUM CHLORIDE 0.9 % (FLUSH) 10 ML SYRINGE 5 ML IVF (20:59)
[2022-05-25] VITALS (7 sets, daily range): BP systolic 80–147; BP diastolic 46–73; PULSE 65–94; RESP 12–18; TEMP 36.1–37.1; O2SAT 95–98
--- NOTE | 2022-05-25 06:34 | PC.NURSE ---
Patient alert to self, vss, regular diet, on RA, SBA with gait belt and walker, denies pain. Patient had an unremarkable evening and slept well through the night, no bouts of vomiting or diarrhea.
[2022-05-25 07:31] LABS: Basophils Percent Auto 0.2 % (0.0-3.0); Eosinophils Percent Auto 0.2 % (0.0-7.0); Hematocrit 33.3 % (37.0-53.0); Hemoglobin* 11.2 gm/dL (13.5-17.5); Immature Granulocytes Pct Auto 1.1 %; Lymphocytes Percent Auto 11.8 % (20-44); Mean Corpuscular HGB Conc 34 gm/dL (32-36); Mean Corpuscular Hemoglobin 35 pg (26-34); Mean Corpuscular Volume 103 fL (80-100); Monocytes Percent Auto 13.4 % (0.0-11.0); Neutrophils Percent Auto 73.3 % (42.0-72.0); Platelet Count* 213 K/uL (140-440); RDW Coefficient of Variation % 14.6 % (11.5-15.5); Red Blood Count 3.25 m/uL (4.30-5.90); White Blood Count* 13.04 K/uL (4.50-11.00)
[2022-05-25 07:43] LABS: Albumin* 3.5 g/dL (3.3-5.0); Chloride* 114 mmol/L (96-114); Potassium* 3.8 mmol/L (3.6-5.1); Sodium* 143 mmol/L (135-149)
[2022-05-25 07:45] LABS: Creatinine* 0.8 mg/dL (0.5-1.5); Est. Creatinine Clearance* 46.96; Estimated Glomerular Filt Rate 86 ml/min
[2022-05-25 07:46] LABS: Alanine Aminotransferase* 20 U/L (4-50); Alkaline Phosphatase* 89 U/L (40-150); Aspartate Amino Transferase* 20 U/L (12-35); Bilirubin Direct* 0.5 mg/dL (0.0-0.5); Bilirubin Total* 1.5 mg/dL (0.1-1.5); Blood Urea Nitrogen* 34 mg/dL (7-30); Calcium* 9.5 mg/dL (8.4-10.6); Carbon Dioxide* 23 mmol/L (20-32); Glucose* 112 mg/dL (60-115); Total Protein* 6.6 g/dL (6.0-8.3)
[2022-05-25 07:48] LABS: Slide Review Reflex No
--- NOTE | 2022-05-25 07:54 | CRLHL7_ITS ---
For Patients: As a result of the Cures Act, medical imaging exams and procedure reports are released immediately into your electronic medical record. You may view this report before your referring provider. If you have questions, please contact your health care provider. Indication: Hip pain Technique: Pelvis and right hip 3 views Comparison: CT chest, abdomen and pelvis 05/24/2022 Findings: Extensive atherosclerotic disease noted. Mild degenerative spurring at the right hip joint. There is no fracture. The pubic rami are intact. Degenerative changes L5-S1. Contrast in the bladder from the recent CT scan. Impression: Mild degenerative joint disease right hip. No fracture. No evidence of joint effusion. Dictated by Cody Muhammad MD @ 05/25/2022 9:37:53 AM (Electronically Signed)
--- NOTE | 2022-05-25 07:54 | CRLHL7_ITS ---
For Patients: As a result of the Century Cures Act, medical imaging exams and procedure reports are released immediately into your electronic medical record. You may view this report before your referring provider. If you have questions, please contact your health care provider. Indication: Right shoulder pain. Technique: Right shoulder 3 views. Comparison: None. Findings: Narrowing and spurring are present at the acromioclavicular joint with small inferior distal clavicular osteophyte. Mild spurring at the glenohumeral joint. Small soft tissue densities adjacent to the humeral head. Osteopenia. No fracture. Neurostimulator devices. Scarring within the visualized lung parenchyma. Impression: Degenerative joint disease right shoulder and rotator cuff calcific tendinitis. Dictated by Cody Muhammad MD @ 05/25/2022 9:28:32 AM (Electronically Signed)
[2022-05-25 09:04] LABS: C Reactive Protein* 18.3 mg/dL (0.5-1.0)
[2022-05-25] MEDS: METOPROLOL SUCCINATE (XL) 50 MG TAB 75 MG PO (09:37)
[2022-05-25] MEDS: GABAPENTIN 300 MG CAPSULE 600 MG PO (09:37)
[2022-05-25] MEDS: MULTIVITAMIN/MINERALS 1 TABLET 1 TAB PO (09:39)
[2022-05-25] MEDS: LACTOBACILLUS ACIDOPHILUS 1 TABLET 1 TAB PO (09:39)
[2022-05-25] MEDS: ASPIRIN 81 MG TABLET EC PO (09:40)
[2022-05-25] MEDS: hydroCHLOROthiazide 12.5 MG CAPSULE PO (09:40)
[2022-05-25] MEDS: allopurinoL 100 MG TABLET 200 MG PO (09:40)
[2022-05-25] MEDS: ISOSORBIDE MONONITRATE ER 30 MG TAB PO ×2 (09:42)
[2022-05-25] MEDS: lisinopriL 20 MG TABLET PO (09:43)
[2022-05-25] MEDS: ACETAMINOPHEN 500 MG TABLET 1000 MG PO ×3 (09:43→20:37)
[2022-05-25] MEDS: TAMSULOSIN HCL 0.4 MG CAPSULE PO (09:44)
[2022-05-25] MEDS: buprenorphine HCL 2 MG TAB.SUBL SL (09:44)
[2022-05-25] MEDS: polyethylene glycoL 3350 17 GM PACK PO (09:44)
[2022-05-25] MEDS: LIDOCAINE 5% PATCH 3 PATCH TRANSDERMA (09:45)
[2022-05-25] MEDS: SODIUM CHLORIDE 0.9 % (FLUSH) 10 ML SYRINGE 5 ML IVF ×2 (09:47→20:44)
[2022-05-25] MEDS: SENNOSIDES/DOCUSATE TABLET 1 TAB PO (09:47)
--- NOTE | 2022-05-25 13:22 | P.IMPN_ITS ---
Progress Note: A&P Assessment and plan (1) Abdominal pain: Problem details: - no acute process identified on imaging, may be related to recent GI illness. Tenderness in the inguinal area. The rest of the abdominal exam is very benign. - VS reassuring, follow leukocytosis and bilirubin - will test for C-diff if diarrhea recurs, continue to follow clinically . Status: Acute (2) Chronic pain: Problem details: - on Lyrica, gabapentin, Suboxone, lidocaine patches. I suspect his right shoulder and his right hip pain are more chronic than acute. Status: Acute (3) Elevated bilirubin: Problem details: Improved today. No further evaluation warranted in the absence of right upper quadrant pain or tenderness with normal LFTs Status: Acute (4) Leukocytosis: Problem details: Leukocytosis with marked elevation of CRP. No definite infection identified to explain this. Possibly an inflammatory process. Symptoms with point to inflammatory process in the joint. Continue to reassess. Does have a history of gout. Status: Acute Plan Continue in hospital for another day of monitoring. He is better today without specific intervention. Further evaluation of hip and or shoulder if continued to have pain and signs of inflammation Time Spent With Patient Total time spent: Total time spent today is 40 minutes, 30 minutes in coordination of care discussing with patient and other providers ongoing evaluation management of pain. Subjective Date Seen: 05/25/22 Interval history: Ramiro Joseph is a 87 year old male who presented to the ER from his Assisted living facility ([facility]) for right-sided abdominal pain. Patient has been intermittently ill since 05/16; during the past week he has had intermittent nausea, vomiting, and diarrhea.? There was apparently a GI illness going around his facility at the time. He has not had vomiting and diarrhea for at least 2 days at this point, but right-sided abdominal pain persists.? He has known post herpetic neuralgia on the right side; current pain is different.? It has not worsened recently, Ramiro actually notes that his pain is improved in the past 24 hours. He was seen by a provider yesterday; per chart review, no acute findings noted on x-ray. He notes he was able to eat today. He has not had any diarrhea today. He is not aware of a fever. He tells me with bothering him most right now is his right shoulder pain and then also his right hip/groin pain. He is not aware of an injury to either of these places. The right hip groin areas where he has a lidocaine patch which he has had chronically for 11 years since he had shingles and post herpetic neuralgia. He has no respiratory illness, cold, sore throat, cough, shortness of breath or chest pain. He is not aware of fever. Exam Narrative: Exam Narrative: He is alert and appears in no distress. He is able to give fair accounting of his history. Generally ports feeling better today except as above. Head is without trauma. Oropharynx is normal. Neck is supple without mass or adenopathy. Respirations are clear to auscultation. Breathing is unlabored. Cardiovascular: S1, S2, regular rate and rhythm. Abdomen is soft without tenderness or mass. I do palpate in the right inguinal area he reports tenderness. He also reports discomfort with palpation over his bladder causing an urge to void. There is no mass and no peritonitis. Palpation over his right shoulder is also tender. Range of motion in the right shoulder is markedly limited. He has moderate pain with 75? of forward flexion. He poorly tolerates range of motion testing of the shoulder. Elbow range of motion is without discomfort. He has intact pulses and sensation distally. There is no obvious erythema or trauma. Right hip is examined. No obvious trauma. He tolerates range of motion in the hip joint fairly well. He does have restricted range of motion but not painful. He is mildly tender in the inguinal area and over the greater trochanter on the right. No skin rash or redness is seen. Distally has intact pulses, motion, sensation. Const: Vital Signs, click to edit/add: Vital Signs - 24 hr 05/24/22 16:30 05/24/22 13:31 05/24/22 14:01 Temperature 97.7 F Pulse Rate 91 87 Pulse Rate [Left B rachial] 94 Pulse Rate [Pulse Oximeter] Respiratory Rate 20 Blood Pressure 163/86 H 176/92 H Blood Pressure [Le ft Arm] 164/79 H Pulse Oximetry 100 96 100 Oxygen Delivery Me thod Room Air 05/24/22 15:00 05/24/22 15:03 05/24/22 15:31 Temperature Pulse Rate 98 96 Pulse Rate [Left B rachial] Pulse Rate [Pulse Oximeter] Respiratory Rate 16 Blood Pressure 176/92 H 155/80 H Blood Pressure [Le ft Arm] Pulse Oximetry 97 97 Oxygen Delivery Me thod 05/24/22 16:02 05/24/22 16:10 05/24/22 20:58 Temperature 97.7 F 97.7 F Pulse Rate 89 Pulse Rate [Left B rachial] 94 Pulse Rate [Pulse Oximeter] Respiratory Rate 14 20 Blood Pressure 168/91 H Blood Pressure [Le ft Arm] 164/79 H Pulse Oximetry 96 100 Oxygen Delivery Me thod Room Air 05/24/22 19:00 05/24/22 22:47 05/24/22 22:47 Temperature 97.7 F Pulse Rate Pulse Rate [Left B rachial] 92 92 Pulse Rate [Pulse Oximeter] Respiratory Rate 12 Blood Pressure Blood Pressure [Le ft Arm] 134/65 Pulse Oximetry 94 94 Oxygen Delivery Me od Room Air Room Air 05/24/22 23:00 05/24/22 23:36 05/25/22 03:00 Temperature 97.5 F L 97.5 F L 97.1 F L Pulse Rate Pulse Rate [Left B rachial] 108 H 89 Pulse Rate [Pulse Oximeter] Respiratory Rate 12 12 Blood Pressure Blood Pressure [Le ft Arm] 139/79 144/71 H Pulse Oximetry 94 96 Oxygen Delivery Me thod Room Air Room Air 05/25/22 06:48 05/25/22 07:30 05/25/22 07:30 Temperature 97.7 F Pulse Rate Pulse Rate [Left B rachial] 92 94 Pulse Rate [Pulse Oximeter] Respiratory Rate 18 18 Blood Pressure Blood Pressure [Le ft Arm] 147/73 H Pulse Oximetry 95 95 Oxygen Delivery Me thod Room Air Room Air 05/25/22 11:00 Temperature 97.1 F L Pulse Rate Pulse Rate [Left B rachial] Pulse Rate [Pulse Oximeter] 85 Respiratory Rate 18 Blood Pressure Blood Pressure [Le ft Arm] 101/62 Pulse Oximetry 97 Oxygen Delivery Me thod Room Air Documenting provider has reviewed patient's vital signs: yes Labs Labs: Laboratory Results - last 24 hr 05/24/22 05/24/22 05/25/22 11:40 14:29 05:53 WBC 13.04 H RBC 3.25 L Hgb 11.2 L Hct 33.3 L MCV 103 H MCH 35 H MCHC 34 RDW Coeff of Wesley 14.6 Plt Count 213 Neut % (Auto) 73.3 H Lymph % (Auto) 11.8 L Elk % (Auto) 13.4 H Eos % (Auto) 0.2 Baso % (Auto) 0.2 Neut # (Auto) 9.60 H Lymph # (Auto) 1.50 Elk # (Auto) 1.70 H Eos # (Auto) 0.00 Baso # (Auto) 0.00 ESR 96 H Sodium 143 Potassium 3.8 Chloride 114 Carbon Dioxide 23 BUN 34 H Creatinine 0.8 Estimated Creat Clear 46.96 Estimated GFR 86 Glucose 112 Calcium 9.5 Total Bilirubin 1.5 Direct Bilirubin 0.7 H 0.5 AST 20 ALT 20 Alkaline Phosphatase 89 C-Reactive Protein 15.7 H 18.3 H Total Protein 6.6 Albumin 3.5 Procalcitonin 0.27 Urine Color Yellow Urine Appearance Slightly Cloudy A Urine pH 5.0 Ur Specific [place] <= 1.005 Urine Protein 1+ A Urine Glucose (UA) Negative Urine Ketones Negative Urine Blood Trace-lysed A Urine Nitrite Negative Urine Bilirubin Negative Urine Urobilinogen 1.0 Ur Leukocyte Esterase Negative Urine RBC 0-2 Urine WBC 2-5 Ur Squamous Epith Cells Few Urine Bacteria None Fine Granular Casts Few A
--- NOTE | 2022-05-25 14:33 | PC.NURSE ---
End of Shift: Patient is A&O but occasionally forgetful. Reported pain only on palpation of the RUQ. SBA with rolling walker. Tolerating regular diet. No n/v/d. Has sore on heal and big toe of right foot. Urine dark tomas, encouraged fluid intake. Updated daughter, Kyara via phone, all questions answered. Son in-law here today. Resting in bed.
[2022-05-25] MEDS: LACTATED RINGERS 1000 ML 500 ML IV (17:29)
--- NOTE | 2022-05-25 18:27 | PC.NURSE ---
shift note; Pt BP Hypotensive (see vss). Dr. Haynes notified and orders to give 500cc LR over 1 hour. pt asymptomatic. LS clr. HR reg. IV patent. pt denies n/v. pt tolerating regular diet.
[2022-05-25] MEDS: PREGABALIN 100 MG CAPSULE PO (20:37)
[2022-05-25] MEDS: SIMVASTATIN 10 MG TABLET PO (20:37)
[2022-05-26] VITALS (7 sets, daily range): BP systolic 92–168; BP diastolic 52–91; PULSE 65–94; RESP 14–16; TEMP 36.2–36.6; O2SAT 94–96
[2022-05-26 07:12] LABS: Albumin* 3.1 g/dL (3.3-5.0); Chloride* 109 mmol/L (96-114); Sodium* 138 mmol/L (135-149)
[2022-05-26 07:13] LABS: Potassium* 3.7 mmol/L (3.6-5.1)
[2022-05-26 07:15] LABS: Alkaline Phosphatase* 81 U/L (40-150); Aspartate Amino Transferase* 20 U/L (12-35); Bilirubin Total* 0.8 mg/dL (0.1-1.5); Carbon Dioxide* 23 mmol/L (20-32); Creatinine* 1.1 mg/dL (0.5-1.5); Est. Creatinine Clearance* 42.69; Estimated Glomerular Filt Rate 65 ml/min; Total Protein* 5.9 g/dL (6.0-8.3)
[2022-05-26 07:16] LABS: Alanine Aminotransferase* 18 U/L (4-50); Blood Urea Nitrogen* 44 mg/dL (7-30); Glucose* 99 mg/dL (60-115)
[2022-05-26 07:40] LABS: C Reactive Protein* 12.5 mg/dL (0.5-1.0)
--- NOTE | 2022-05-26 07:41 | PC.NURSE ---
END OF SHIFT NOTE: PT PLEASANT WITH ALZHEIMER'S DEMENTIA. PT DENIES CP, SOB, N/V. AMBULATES WELL WITH WALKER, GB, A1. VSS ON RA, WITH SOFT BP'S OF 104/58 & 92/52; ASYMPTOMATIC. PT AFEBRILE. BED ALARM ON AND CALL LIGHT WITHIN PT?S REACH. VOIDED FOR 180ML THIS SHIFT. BLADDER SCANNED POST VOID FOR MAX 13ML.
[2022-05-26] MEDS: ACETAMINOPHEN 500 MG TABLET 1000 MG PO (09:32)
[2022-05-26] MEDS: ASPIRIN 81 MG TABLET EC PO (09:33)
[2022-05-26] MEDS: GABAPENTIN 300 MG CAPSULE 600 MG PO (09:33)
[2022-05-26] MEDS: TAMSULOSIN HCL 0.4 MG CAPSULE PO (09:33)
[2022-05-26] MEDS: buprenorphine HCL 2 MG TAB.SUBL SL (09:33)
[2022-05-26] MEDS: allopurinoL 100 MG TABLET 200 MG PO (09:33)
[2022-05-26] MEDS: polyethylene glycoL 3350 17 GM PACK PO (09:34)
[2022-05-26] MEDS: MULTIVITAMIN/MINERALS 1 TABLET 1 TAB PO (09:34)
[2022-05-26] MEDS: SENNOSIDES/DOCUSATE TABLET 1 TAB PO (09:34)
[2022-05-26] MEDS: LIDOCAINE 5% PATCH 3 PATCH TRANSDERMA (09:34)
[2022-05-26] MEDS: SODIUM CHLORIDE 0.9 % (FLUSH) 10 ML SYRINGE 5 ML IVF (09:35)
--- NOTE | 2022-05-26 12:36 | PM.DS1 ---
DS: Providers Provider Date Seen: 05/26/22 Date of admission: 05/24/22 16:08 Primary care physician: Not a Local Provider Admitting Clinician: Gail Haynes MD Consults: General surgery Attending Physician on discharge: Erik Ross MD Date of Discharge: 05/26/22 DS: Diagnosis Discharge Diagnosis (1) Abdominal pain: Status: Acute Problem details: On admission was reporting right-sided abdominal pain. CT scan was normal. Abdominal exam was benign. Surgical consult did not identify any acute surgical problem. Mild bilirubin elevation resolved without specific therapy Has had no abdominal pain since admission. (2) Chronic pain: Status: Acute Problem details: - on Lyrica, gabapentin, Suboxone, lidocaine patches. I suspect his right shoulder and his right hip pain are more chronic than acute. He has a history of post herpetic neuralgia for 11 years involving his right hip and groin area. His right shoulder pain is likely due to chronic rotator cuff pathology. He had tenderness with palpation yesterday and today he has no tenderness and his range of motion is significantly improved in his right shoulder. (3) Vomiting and diarrhea: Status: Acute Problem details: For at least a week prior to admission patient reportedly had vomiting and diarrhea. This was present in his assisted facility with other residents. Since admission he has had no vomiting or diarrhea and has been eating a normal diet (4) Elevated bilirubin: Status: Acute Problem details: Improved today. No further evaluation warranted in the absence of right upper quadrant pain or tenderness with normal LFTs (5) Leukocytosis: Status: Acute Problem details: Leukocytosis with marked elevation of CRP. No definite infection identified to explain this. His leukocytosis and elevated CRP improved without any specific therapy. These are possibly related to his acute gastrointestinal illness which has also resolved (6) Hypertension: Status: Acute Problem details: On admission patient had elevated blood pressure. Today he has relatively low blood pressure but is asymptomatic. I have cut his lisinopril hydrochlorothiazide dose in half pending outpatient follow-up of his blood pressure. DS: Summary Hospital Course Hospital Course: 87-year-old male admitted to the hospital with report of right-sided abdominal pain vomiting and diarrhea. The time of admission no clear diagnosis was made to explain the cause of his symptoms. At the time of admission he had benign physical examination and a benign CT scan. He was seen in consultation with General surgery who also felt that he had a benign abdominal examination. In the last 36 hours he has had no nausea, vomiting, diarrhea or abdominal pain. He was concerned about right hip pain which is likely chronic possibly from his post herpetic neuralgia. He also had right shoulder pain which yesterday add appeared to be more acute and today is much improved without specific therapy. Yesterday his shoulder was tender and today it is not. Yesterday he could only flex his shoulders 75? and today he can get to 110? of forward flexion without significant pain. Radiograph suggest old rotator cuff pathology in his shoulder. His elevated white blood count and CRP improved without specific therapy. He had a mildly elevated bilirubin which also normalized during his hospital stay. There was no definite diagnosis to explain these abnormalities on lab tests except his recent gastrointestinal illness with vomiting and diarrhea. That appears to have resolved. His blood pressure was relatively high on admission and is relatively low today. I have cut his lisinopril hydrochlorothiazide dose in half pending outpatient follow-up of his blood pressure. I had spoke with his daughter about his recent health concerns, current evaluation and treatment in the hospital. At this point there is some uncertainty about what has happened but he currently has no acute concerns and his recent abnormal lab tests are improving. Outpatient follow-up is recommended. Status at Discharge Functional status at discharge: uses cane/walker Overall status at discharge: patient is back to baseline Time Spent with Patient Time attestation: Total time spent providing and/or coordinating discharge services: Time spent: Greater than 30 minutes Exam Narrative: Exam Narrative: He is alert and oriented to his circumstances. He is in no distress. He has no specific complaints today. He indicates that his hip/groin pain is the same pain he has had for years. Respirations are clear to auscultation. Cardiovascular: S1, S2, regular rate and rhythm. No murmur gallop or rub. Palpation over his right shoulder is nontender today. He is able to forward flex to about 110? without significant discomfort. This is a marked improvement from yesterday. Abdomen is soft without any tenderness or mass. He does have continued tenderness in the right inguinal area and over the right greater trochanter there is no mass, adenopathy or palpable hernia. External genitalia normal. Moves his right hip with flexion extension and internal external rotation without significant discomfort. Const: Vital Signs, click to edit/add: Vital Signs - 24 hr 03/23/23 15:00 05/25/22 15:00 05/25/22 19:09 Temperature 98.7 F 97 F L Pulse Rate Pulse Rate [Left B rachial] 65 Pulse Rate [Pulse Oximeter] 65 Pulse Rate [Right] 68 66 Respiratory Rate 18 18 16 Blood Pressure Blood Pressure [Le ft Arm] 80/46 L Blood Pressure [Ri ght Arm] 88/49 L 94/48 L Pulse Oximetry 97 96 98 Oxygen Delivery Me thod Room Air Room Air Room Air 05/25/22 20:37 05/26/22 00:55 05/26/22 00:55 Temperature 97 F L Pulse Rate Pulse Rate [Left B rachial] Pulse Rate [Pulse Oximeter] 68 Pulse Rate [Right] Respiratory Rate 14 14 Blood Pressure Blood Pressure [Le ft Arm] Blood Pressure [Ri ght Arm] Pulse Oximetry 95 Oxygen Delivery Md thod Room Air 05/26/22 00:55 05/26/22 04:00 05/26/22 07:00 Temperature 97.8 F 97.2 F L Pulse Rate Pulse Rate [Left B rachial] 65 Pulse Rate [Pulse Oximeter] 68 68 70 Pulse Rate [Right] Respiratory Rate 14 16 16 Blood Pressure Blood Pressure [Le ft Arm] Blood Pressure [Ri ght Arm] 104/58 L 92/52 L Pulse Oximetry 95 95 Oxygen Delivery Md thod Room Air Room Air 05/26/22 07:00 05/26/22 07:30 05/26/22 11:20 Temperature 97.4 F L 97.4 F L Pulse Rate 89 Pulse Rate [Left B rachial] Pulse Rate [Pulse Oximeter] 94 Pulse Rate [Right] Respiratory Rate 16 16 16 Blood Pressure 168/91 H Blood Pressure [Le ft Arm] Blood Pressure [Ri ght Arm] 117/56 L Pulse Oximetry 95 94 Oxygen Delivery Me thod Room Air Room Air 05/26/22 12:00 Temperature 97.3 F L Pulse Rate Pulse Rate [Left B rachial] Pulse Rate [Pulse Oximeter] 76 Pulse Rate [Right] Respiratory Rate 16 Blood Pressure Blood Pressure [Le ft Arm] 102/53 L Blood Pressure [Ri ght Arm] Pulse Oximetry 96 Oxygen Delivery Me thod Room Air Documenting provider has reviewed patient's vital signs: yes DS: Data Data Completed and Pending Labs on day of discharge: Labs from last 24 hours 05/26/22 05:41 Sodium 138 Potassium 3.7 Chloride 109 Carbon Dioxide 23 BUN 44 H Creatinine 1.1 Estimated Creat Clear 42.69 Estimated GFR 65 Glucose 99 Calcium 9.0 Total Bilirubin 0.8 AST 20 ALT 18 Alkaline Phosphatase 81 C-Reactive Protein 12.5 H Total Protein 5.9 L Albumin 3.1 L Preliminary micro results at discharge 05/24/22 12:33 Blood Culture - Preliminary Blood NO GROWTH AFTER [address] Chest/Ab/Pelvis: Radiologist's impression: INDICATION: Hypogastric pain with weakness TECHNIQUE: CT chest, abdomen and pelvis acquired with 82 milliliters of Isovue 370 IV contrast. COMPARISON: January 01, 2020 FINDINGS: CHEST: Cardiovascular structures: Heart size is normal. Thoracic aorta and main pulmonary artery are normal in caliber.? Aortic arch and coronary artery calcifications. No central PE. Mediastinum and danisha: No mass or adenopathy.? Lungs and pleura: Pulmonary emphysema. Trace left pleural effusion with compressive atelectasis and pleural calcifications. Chest wall and axilla: No mass or adenopathy.? Bones: Left shoulder arthroplasty causing streak artifact. Sternotomy wires. No suspicious bone lesions. Degenerative changes. ABDOMEN AND PELVIS: Liver: Unremarkable.? Gallbladder and bile ducts: Cholecystectomy. Pancreas: Fatty atrophy. Spleen: Unremarkable.? Adrenal glands: Unremarkable.? Kidneys: Bilateral renal cysts. Additional hypodensities too small to characterize. No hydronephrosis. GI tract: Colonic diverticulosis. No bowel obstruction. Vascular structures: Moderate aortoiliac arterial calcifications. Lymph nodes: Unremarkable.? Miscellaneous: Left lumbar generator pack with spinal stimulator leads. No free air or significant free fluid. Postsurgical changes along the ventral pelvic wall. Pelvic Organs: Prostatomegaly. The mildly distended bladder with circumferential wall thickening, greatest along the anterior aspect. Bones: No suspicious bone lesions. Degenerative changes. IMPRESSION: Pulmonary emphysema. Trace left pleural effusion. Colonic diverticulosis. Circumferential bladder wall thickening. Recommend correlation with urinalysis. No acute intrathoracic or intra-abdominal/pelvic abnormality. Discharge Plan Discharge Disposition: [facility] Date of Admission: 05/24/22 16:08 Attending Provider on Discharge: Kenney Ross Primary Care Provider: Provider,Not a Local Condition: Unchanged Discharge Medications: Continued allopurinol 100 mg tablet 200 mg PO DAILY buprenorphine-naloxone 2-0.5 mg film 0.25 film sublingual Q24H Rx Instructions: 03/08 of a film under the tongue daily gabapentin 300 mg capsule 600 mg PO DAILY cholecalciferol (vitamin D3) [Vitamin D3] 25 mcg (1,000 unit) capsule 25 mcg PO DAILY isosorbide mononitrate 30 mg tablet extended release 24 hr 30 mg PO DAILY lidocaine 5 % adhesive patch,medicated 3 patch topical DAILY metoprolol succinate 50 mg tablet extended release 24 hr 75 mg PO DAILY simvastatin 10 mg tablet 10 mg PO HS tamsulosin 0.4 mg capsule 0.4 mg PO DAILY pregabalin 100 mg capsule 100 mg PO HS rivastigmine 9.5 mg/24 hour patch 24 hour 1 patch topical DAILY acetaminophen [Acetaminophen Pain Relief] 500 mg tablet 1,000 mg PO TID Lactobacillus acidophilus 0.5 mg (100 million cell) tablet 0.5 mg PO Q48H aspirin [Adult Aspirin Regimen] 81 mg tablet,delayed release (DR/EC) 81 mg PO DAILY coenzyme Q10 [Co Q-10] 100 mg capsule 100 mg PO DAILY omega [id number] oil [Fish Oil] 1,000 mg (120 mg-180 mg) capsule 1 cap PO DAILY sennosides-docusate sodium [Senexon-S] 8.6-50 mg tablet 1 tab-cap PO DAILY polyethylene glycol 3350 [ClearLax] 17 gram/dose powder 17 g PO DAILY multivitamin [Daily Multi-Vitamin] Tablet 1 tab PO DAILY albuterol sulfate 90 mcg/actuation HFA aerosol inhaler 2 puff inhalation Q4H PRN bismuth subsalicylate 262 mg/15 mL suspension 262 mg PO Q4H PRN ketoconazole 2 % cream 1 applic topical BID PRN metoclopramide HCl 5 mg/5 mL solution 5 - 10 mg PO TID PRN nitroglycerin 0.4 mg tablet, sublingual 0.4 mg sublingual Q5M PRN pantoprazole 40 mg tablet,delayed release (DR/EC) 40 mg PO DAILY PRN CLOTR/A+D Rx Instructions: TO BUTTOCKS BID AND PRN Changed lisinopril-hydrochlorothiazide 20-12.5 mg tablet 0.5 tab PO DAILY Qty: 30 0RF Discharge Orders: Discharge Order (Routine); Ordered 05/26/22 Ordered By: Kenney Ross Activity Level: Activity as Tolerated and Use Walker Discharge Diet: Regular Follow Up Appointments: Provider,Not a Local [Primary Care Provider] - Admit to: Assisted Living Code Status: Full Code Oxygen: No Urinary Catheter: No
--- NOTE | 2022-05-26 12:47 | PC.NURSE ---
Pt's vitals stable, controlled pain with scheduled medications, x3 lidocaine patches applied to pt's R hip area. Pt up w/ nursing and therapy, denies dizziness. Tolerating diet, voiding into urinal. IV removed prior to d/c intact. Discharge instructions reviewed w/ pt's daughter 'Xuan', questions answered, education on new medication dosage of lisinopril/hctz. Pt d/c w/ all belongings including personal WC. [employer] called and updated [facility] on pt's return. Daughter transported pt back to [facility].
== END 2022-05-26 12:23 ==
LOC: ED 15:48 → MEDSURG 16:10
PROVIDERS: Family Medicine; Admitting Provider Family Medicine; Emergency Provider Family Medicine; Visit Provider Family Medicine
DX: D72.829 Elevated white blood cell count, unspecified (principal); R79.82 Elevated C-reactive protein (CRP); E80.7 Disorder of bilirubin metabolism, unspecified; B02.29 Other postherpetic nervous system involvement; M25.551 Pain in right hip; M25.511 Pain in right shoulder; G89.29 Other chronic pain; R91.8 Other nonspecific abnormal finding of lung field; J90 Pleural effusion, not elsewhere classified; G30.9 Alzheimer's disease, unspecified; F02.80 Dementia in other diseases classified elsewhere, unspecified severity, without behavioral disturbance, psychotic disturbance, mood disturbance, and anxiety; I10 Essential (primary) hypertension; I95.9 Hypotension, unspecified; Z90.49 Acquired absence of other specified parts of digestive tract; Z87.898 Personal history of other specified conditions; Z79.82 Long term (current) use of aspirin; R53.1 Weakness; L84 Corns and callosities; M10.9 Gout, unspecified; Z96.653 Presence of artificial knee joint, bilateral; I25.10 Atherosclerotic heart disease of native coronary artery without angina pectoris; E78.5 Hyperlipidemia, unspecified; Z87.891 Personal history of nicotine dependence
CPT/HCPCS: 36415; 51798; 71260; 73030; 73502; 74177; 80048; 80053; 80076; 81001; 82565; 83605; 83690; 84145; 85025; 85651; 86140; 87040; 87635; 94761; 96360; 96361; 97116; 97161; 97165; 97530; 99284; 99285; J0571; A9153; A9270; G0378; J7030; J7120; Q9967